=== PATIENT | female | born 1985 | race American Indian/Alaskan Native ===

== ENCOUNTER 2016-08-14 17:06 | Emergency (ER) | payer SELFPAY ==
[2016-08-14 17:18] VITALS: BP 138/95
--- NOTE | 2016-08-14 17:22 | Emergency Department Report ---
Chief Complaint: OB/Uterine Contractions Stated Complaint: POSSIBLE MISCARRIAGE Time Seen by Provider: 08/14/16 17:19 - HPI History of Present Illness: PT states she is , unsure how far along. had US -- and was told less than 5 weeks. - ROS Review of Systems: + brown discharge + pelvic cramps - Exam Vital Signs: Vital Signs 08/14/16 17:14 Temperature 98.5 F Pulse Rate 110 H Respiratory 18 Rate Blood Pressure 138/95 O2 Sat by Pulse 100 Oximetry Physical Exam: PT looks well, non toxic steady gait gcs 15 MSE screening note: Focused history and physical exam performed. Due to findings the following was ordered: labs, us ED Disposition for MSE Condition: Stable
[2016-08-14 18:10] LABS: Alanine Aminotransferase 9 units/L (7-56); Albumin 4.2 g/dL (3.9-5); Albumin/Globulin Ratio 1.1 %; Alkaline Phosphatase 67 units/L (35-129); Anion Gap 19 mmol/L; Blood Urea Nitrogen 9 mg/dL (7-17); Calcium 9.4 mg/dL (8.4-10.2); Carbon Dioxide 22 mmol/L (22-30); Glucose 88 mg/dL (65-100); Sodium 133 mmol/L (137-145)
[2016-08-14 18:35] LABS: Bilirubin,Urine NEG (Negative); Blood,Urine NEG (Negative); Ketones,Urine 20 mg/dL (Negative); Leukocyte Esterase,Urine NEG (Negative); Mucus,Urine 3+ /HPF; Nitrite,Urine NEG (Negative); Urobilinogen,Urine < 2.0 mg/dL (<2.0)
[2016-08-14 18:42] LABS: Basophils % (Auto) 0.4 % (0.0-1.8); Eosinophils % (Auto) 0.2 % (0.0-4.3); Hematocrit 29.3 % (30.3-42.9); Hemoglobin 9.3 gm/dl (10.1-14.3); Mean Corpuscular HGB Conc 32 % (30-34); Mean Corpuscular Volume 74 fl (79-97); Platelet Count 400 K/mm3 (140-440); Red Blood Count 3.95 M/mm3 (3.65-5.03); White Blood Count 7.3 K/mm3 (4.5-11.0)
[2016-08-14 18:43] LABS: Mean Corpuscular Hemoglobin 24 pg (28-32)
--- NOTE | 2016-08-14 20:13 | Ultrasound Report ---
FINAL REPORT PROCEDURE: US OB \T\lt; = 14 WEEKS FETUS TECHNIQUE: Real-time transabdominal and transvaginal sonography of the uterus, placenta, amniotic fluid, adnexa, and fetus was performed with image documentation. Measurements were obtained to determine age/size. M-mode Doppler was used to document heartbeat. CPT 32927 and 11485 HISTORY: pain preg COMPARISON: No prior studies are available for comparison. FINDINGS: ADDITIONAL GESTATION: None. Single live intrauterine is seen with crown-rump length of 4.8 millimeters. This corresponds to 6 weeks 1 day gestational age. Mean sac diameter corresponds to 6 weeks 4 days gestational age, with estimated date of delivery based on average of these measurements being April 06, 2017. heart rate is 118 beats per minute. There is likely a small implantation bleed. There is a 1.1 cm exophytic fibroid seen in the posterior body of the uterus. Right ovary measures 4.2 x 2.6 x 2.2 cm. Left ovary measures 3.1 x 1.3 x 1.4 cm. No adnexal masses are seen. Minimal free pelvic fluid is seen. IMPRESSION: 1. Single live intrauterine gestation at approximately 6 weeks 3 days. 2. EDC by US April 06, 2017 3. There is likely a tiny implantation bleed.
--- NOTE | 2016-08-14 20:14 | Ultrasound Report ---
FINAL REPORT PROCEDURE: US OB TRANSVAGINAL TECHNIQUE: Real-time transabdominal and transvaginal sonography of the uterus, placenta, amniotic fluid, adnexa, and fetus was performed with image documentation. Measurements were obtained to determine age/size. M-mode Doppler was used to document heartbeat. CPT 86590 and 81031 HISTORY: pain preg COMPARISON: No prior studies are available for comparison. FINDINGS: ADDITIONAL GESTATION: None. Single live intrauterine is seen with crown-rump length of 4.8 millimeters. This corresponds to 6 weeks 1 day gestational age. Mean sac diameter corresponds to 6 weeks 4 days gestational age, with estimated date of delivery based on average of these measurements being April 06, 2017. heart rate is 118 beats per minute. There is likely a small implantation bleed. There is a 1.1 cm exophytic fibroid seen in the posterior body of the uterus. Right ovary measures 4.2 x 2.6 x 2.2 cm. Left ovary measures 3.1 x 1.3 x 1.4 cm. No adnexal masses are seen. Minimal free pelvic fluid is seen. IMPRESSION: 1. Single live intrauterine gestation at approximately 6 weeks 3 days. 2. EDC by US April 06, 2017 3. There is likely a tiny implantation bleed.
--- NOTE | 2016-08-14 23:15 | Emergency Department Report ---
HPI - General Chief Complaint: OB/Uterine Contractions Time Seen by Provider: 08/14/16 17:19 - HPI HPI: Room 5 The patient is a 31-year-old female presenting with a chief complaint of abdominal cramping and vaginal bleeding/spotting. The patient states she was recently diagnosed as . The patient states for the past several weeks she has had intermittent light pelvic cramping. The patient states today while standing in store she felt as though she was having a vaginal discharge and so she went to the bathroom and noticed a small amount of brown liquid consistent with old blood. The patient states he was not enough blood to fill a pantiliners. Patient states she developed slight cramping to the pelvis and side to come to the emergency department. The patient states she feels okay but is just anxious about the results of her studies Location: Pelvis Duration: Intermittent times weeks Quality: Cramping Severity: Mild Modifying factors: [see above] Context: [see above] Mode of transportation: [not driving] ED Past Medical Hx - Past Medical History Previous Medical History?: No - Surgical History Past Surgical History?: No - Family History Family history: no significant - Social History Smoking Status: Never Smoker Substance Use Type: None ED Review of Systems ROS: Stated complaint: POSSIBLE MISCARRIAGE Other details as noted in HPI Comment: All other systems reviewed and negative Constitutional: denies: chills, fever Eyes: denies: eye pain, eye discharge, vision change ENT: denies: ear pain, throat pain Respiratory: denies: cough, shortness of breath, wheezing Cardiovascular: denies: chest pain, palpitations Endocrine: no symptoms reported Gastrointestinal: abdominal pain Genitourinary: abnormal menses Musculoskeletal: denies: back pain, joint swelling, arthralgia Skin: denies: rash, lesions Neurological: denies: headache, weakness, paresthesias Psychiatric: denies: anxiety, depression Hematological/Lymphatic: denies: easy bleeding, easy bruising Physical Exam - Physical Exam Vital Signs: Vital Signs 08/14/16 17:14 Temperature 98.5 F Pulse Rate 110 H Respiratory 18 Rate Blood Pressure 138/95 O2 Sat by Pulse 100 Oximetry Physical Exam: GENERAL: The patient is well-developed well-nourished female lying on stretcher appearing tearful/anxious but relaxes after being informed of test results. [] HEENT: Normocephalic. Atraumatic. Extraocular motions are intact. Patient has moist mucous membranes. NECK: Supple. Trachea midline CHEST/LUNGS: Clear to auscultation. There is no respiratory distress noted. HEART/CARDIOVASCULAR: Regular. There is no tachycardia. There is no gallop rub or murmur. ABDOMEN: Abdomen is soft, nontender. Patient has normal bowel sounds. There is no abdominal distention. SKIN: There is no rash. There is no edema. There is no diaphoresis. NEURO: The patient is awake, alert, and oriented. The patient is cooperative. The patient has normal speech MUSCULOSKELETAL: There is no evidence of acute injury. ED Course Vital Signs 08/14/16 17:14 Temperature 98.5 F Pulse Rate 110 H Respiratory 18 Rate Blood Pressure 138/95 O2 Sat by Pulse 100 Oximetry - Reevaluation(s) Reevaluation #1: 08/14/16 23:18 Test results discussed with patient. Patient advised to undergo bedrest and pelvic rest until seen by [facility] Medical Decision Making - Lab Data Result diagrams: 08/14/16 17:26 08/14/16 17:26 Laboratory Tests 08/14/16 08/14/16 08/14/16 17:26 17:26 17:26 WBC 7.3 RBC 3.95 Hgb 9.3 L Hct 29.3 L MCV 74 L MCH 24 L MCHC 32 RDW 20.0 H Plt Count 400 Lymph % (Auto) 29.5 [place] % (Auto) 9.4 H Eos % (Auto) 0.2 Baso % (Auto) 0.4 Lymph # 2.1 [place] # 0.7 Eos # 0.0 Baso # 0.0 Seg Neutrophils % 60.5 Seg Neutrophils # 4.4 Sodium 133 L Potassium 4.0 Chloride 96.0 L Carbon Dioxide 22 Anion Gap 19 BUN 9 Creatinine 0.5 L Estimated GFR > 60 BUN/Creatinine Ratio 18.00 Glucose 88 Calcium 9.4 Total Bilirubin 0.50 AST 17 ALT 9 Alkaline Phosphatase 67 Total Protein 8.0 Albumin 4.2 Albumin/Globulin Ratio 1.1 HCG, Quant 00282 H Urine Color Urine Turbidity Urine pH Ur Specific [place] Urine Protein Urine Glucose (UA) Urine Ketones Urine Blood Urine Nitrite Urine Bilirubin Urine Urobilinogen Ur Leukocyte Esterase Urine WBC (Auto) Urine RBC (Auto) U Epithel Cells (Auto) Urine Mucus Blood Type 08/14/16 08/14/16 17:30 18:06 WBC RBC Hgb Hct MCV MCH MCHC RDW Plt Count Lymph % (Auto) [place] % (Auto) Eos % (Auto) Baso % (Auto) Lymph # [place] # Eos # Baso # Seg Neutrophils % Seg Neutrophils # Sodium Potassium Chloride Carbon Dioxide Anion Gap BUN Creatinine Estimated GFR BUN/Creatinine Ratio Glucose Calcium Total Bilirubin AST ALT Alkaline Phosphatase Total Protein Albumin Albumin/Globulin Ratio HCG, Quant Urine Color [place] Urine Turbidity Clear Urine pH 6.0 Ur Specific [place] 1.026 Urine Protein 30 mg/dl Urine Glucose (UA) Neg Urine Ketones 20 Urine Blood Neg Urine Nitrite Neg Urine Bilirubin Neg Urine Urobilinogen < 2.0 Ur Leukocyte Esterase Neg Urine WBC (Auto) 2.0 Urine RBC (Auto) 3.0 U Epithel Cells (Auto) 5.0 Urine Mucus 3+ Blood Type A POSITIVE - Radiology Data Radiology results: report reviewed (pelvic ultrasound), image reviewed (pelvic ultrasound) Pelvic ultrasound (read by radiologist)-single live intrauterine gestation at approximately 6 weeks 3 days. EDC by ultrasound 04/06/2017. - Differential Diagnosis threatened , spontaneous , inevitable Critical care attestation.: If time is entered above; I have spent that time in minutes in the direct care of this critically ill patient, excluding procedure time. ED Disposition Clinical Impression: Threatened Disposition: [id number] TO HOME OR SELFCARE Is pt being admited?: No Does the pt Need Aspirin: No Condition: Stable Instructions: Threatened Miscarriage (ED) Additional Instructions: Return to the emergency department immediately should you develop worsening symptoms, fever, inability to tolerate food or liquid or any other concerns. Referrals: DEAN HGUO MD [Staff Physician] - 3-5 Days (Dr. Hugo is an [facility]. Please follow up with her or your [facility] for further evaluation) Time of Disposition: 23:18
== END 2016-08-14 23:34 | disposition home or self-care (01) ==
LOC: ED 17:06
DX: O20.0 Threatened abortion (principal)
CPT/HCPCS: 36415; 76801; 76817; 80053; 81001; 84702; 85025; 86900; 86901